=== PATIENT | female | born 1965 | race Caucasian/White ===

== ENCOUNTER 2018-09-07 10:44 | Day surgery (SDC) | payer OTHER, SELFPAY ==
[2018-09-07 10:58] VITALS: BMI 24.3
[2018-09-07 11:05] VITALS: BP 126/84; PULSE 70; RESP 16; TEMP 36.2; O2SAT 100
--- NOTE | 2018-09-07 12:09 | PM.HP.1 ---
History of Present Illness Date Patient Seen: 09/07/18 Time Patient Seen: 12:09 Chief complaint: [id number] Narrative: Patient is a woman here for screening colonoscopy. This is her 1st exam. No family history of colon cancer. Patient History Medical History Hearing deficit (Chronic) Vision disorder (Chronic) Herpes (Resolved ~1992) Surgical History Anesthesia (Resolved) Status post knee surgery Status post loop electrosurgical excision procedure (LEEP) of cervix (08/04/15) Family History Father Diabetes mellitus Hypertension High cholesterol Stroke Social History Smoking Status: Never smoker Family & Social History Family History Father Diabetes mellitus Hypertension High cholesterol Stroke Tobacco & Substance use: Smoking Status Never smoker Meds Home Medications Medication Instructions Recorded Confirmed Type biest 50/50 1 mg TOP .qd #1 07/28/18 09/07/18 Rx Progesterone E4M 75 mg PO .qhs #30 tab 08/12/18 09/07/18 Rx estriol See Rx Instructions .ROUTE .COMPLEX 09/07/18 09/07/18 History Allergies Allergy/AdvReac Type Severity Reaction Status Date / Time No Known Drug Allergies Allergy Verified 09/07/18 11:07 Review of Systems Review of Systems All systems reviewed & are unremarkable except as noted in HPI and below Gastrointestinal Comments: Take some kind of Medicine to flush liver Genitourinary Comments: Intermittent urinary tract infections Exam Vital Signs (past 8 hours): - 09/07/18 11:05 Temperature 97.2 F L Pulse Rate 70 Respiratory Rate 16 Blood Pressure 126/84 Pulse Oximetry 100 Oxygen Delivery Method Room Air Narrative Exam Narrative: Operative no apparent distress. Her lungs are clear to auscultation no rales or rhonchi heart regular rate and rhythm no murmur or gallop abdomen is scaphoid soft nontender without mass. Patient is alert and oriented x3. Assessment & Plan Assessment & Plan narrative: For screening colonoscopy. I have discussed the procedure and the rationale with the patient including risks of bleeding, perforation which would necessitate a major operation, failure to find remove all lesions and the potential to tattoo. They appeared to understand and wished to proceed.
--- NOTE | 2018-09-07 12:11 | PM.PREOP ---
Pre-operative Note Interval Note History & Physical reviewed/Exam performed by Physician: Yes Changes to H&P: No ASA Class (for procedural sedation): I
[2018-09-07] MEDS: fentaNYL 250 MCG/5 ML INJ IV (12:22)
[2018-09-07] MEDS: MIDAZOLAM 5 MG/5 ML VIAL IV (12:22)
--- NOTE | 2018-09-07 12:44 | PM.OP.ENDO ---
Operative Date/Time/Diagnoses Date of procedure: 09/07/18 Time of procedure: 12:45 Pre-op diagnosis: Screening examination due to age. This is her 1st colonoscopy. Post-op diagnosis: same (Normal exam) Procedure & Clinicians Study performed: Colonoscopy Same procedure as scheduled: Yes Indications: Screening due to age over 50 Surgeon: Erasto Greer Procedure Notes SCOAP/Timeout: Performed Procedure in detail: The patient was placed in the left lateral decubitus position and underwent IV sedation directed by the surgeon consisting of fentanyl and Versed. Digital exam was unremarkable. The scope was inserted and advanced through the rectum into the sigmoid, descending, transverse, and ascending colon. No lesions were seen. The cecum was reached identified by the ileocecal valve and the appendiceal opening. The ileocecal valve was successfully cannulated. The terminal ileum was normal in appearance. The scope was gradually brought out. No Polyps were found. The scope ultimately was retroflexed in the rectum. The appearance was normal except for minor scarring on what appeared to be old nonactive hemorrhoids. The scope was removed and the patient tolerated the procedure well Scope withdrawal time: Almost 8 min Sedation minutes: 27 Findings: other findings (Normal exam except minor scarring on inactive hemorrhoids) Specimen(s): none sent Complications: none Recommendations: Colonscopy in 10 years Follow up: as needed Disposition: PACU
--- NOTE | 2018-09-07 12:48 | P.OP.ENDO_ITS ---
Operative Date/Time/Diagnoses Date of procedure: 09/07/18 Time of procedure: 12:45 Pre-op diagnosis: Screening examination due to age. This is her 1st colonoscopy. Post-op diagnosis: same (Normal exam) Procedure & Clinicians Study performed: Colonoscopy Same procedure as scheduled: Yes Indications: Screening due to age over 50 Surgeon: Erasto Greer Procedure Notes SCOAP/Timeout: Performed Procedure in detail: The patient was placed in the left lateral decubitus position and underwent IV sedation directed by the surgeon consisting of fentanyl and Versed. Digital exam was unremarkable. The scope was inserted and advanced through the rectum into the sigmoid, descending, transverse, and ascending colon. No lesions were seen. The cecum was reached identified by the ileocecal valve and the appendiceal opening. The ileocecal valve was successfully cannulated. The terminal ileum was normal in appearance. The scope was gradually brought out. No Polyps were found. The scope ultimately was retroflexed in the rectum. The appearance was normal except for minor scarring on what appeared to be old nonactive hemorrhoids. The scope was removed and the patient tolerated the procedure well Scope withdrawal time: Almost 8 min Sedation minutes: 27 Findings: other findings (Normal exam except minor scarring on inactive hemo rrhoids) Specimen(s): none sent Complications: none Recommendations: Colonscopy in 10 years Follow up: as needed Disposition: PACU
[2018-09-07 12:54] VITALS: BP 108/73; PULSE 66; RESP 15; TEMP 36.6; O2SAT 100
[2018-09-07 13:34] VITALS: BP 104/74; PULSE 59; RESP 15; TEMP 36.4; O2SAT 100
== END 2018-09-07 13:50 | disposition home or self-care (01) ==
PROVIDERS: PCP Family Medicine; Visit Provider Specialist
PROC: 0DJD8ZZ Inspection of Lower Intestinal Tract, Via Natural or Artificial Opening Endoscopic (ICD-10-PCS; CPT 45378; principal; 2018-09-07 12:00)
DX: Z12.11 Encounter for screening for malignant neoplasm of colon (principal)
CPT/HCPCS: 45378; 99152; 99153; J2250; J3010

== ENCOUNTER → 2021-01-05 12:02 | Outpatient (CLI) | payer OTHER, SELFPAY ==
[2021-01-05 20:04] LABS: COVID19 - ORCAS (NP or Nasal) Negative (Negative)
== END ==
PROVIDERS: PCP Family Medicine; Visit Provider Family Medicine
DX: J06.9 Acute upper respiratory infection, unspecified (principal)
CPT/HCPCS: U0003

== ENCOUNTER → 2025-03-09 12:57 | Outpatient (CLI) | payer BC, SELFPAY | PROVIDERS: PCP Physician Assistant Medical; Visit Provider Physician Assistant Medical | DX: B35.3 Tinea pedis (principal) | CPT/HCPCS: 87070; 87075; 87205 ==

== ENCOUNTER → 2025-03-11 14:13 | Outpatient (CLI) | payer BC, SELFPAY ==
--- NOTE | 2025-03-11 14:14 | DI.RAD.S_ITS ---
PROCEDURE: XR DEXA AXIAL SKELETON INDICATIONS: screen COMPARISON: None. FINDINGS: Lumbar Spine: Bone mineral density 0.906 g/cm2, T score -1.3. Left Femoral Neck: Bone mineral density 0.629 g/cm2, T score -2.0. Left Hip: Bone mineral density 0.824 g/cm2, T score -1.0. Fracture Risk Calculation (when applicable): 10-year fracture risk of a major osteoporotic fracture 16 percent and of a hip fracture 2.0 percent. (T score greater or equal to -1.0 to: NORMAL) (T score from -1.1 to -2.4: OSTEOPENIA) (T score less than or equal to -2.5: OSTEOPOROSIS) IMPRESSION: Osteopenia--- recommend repeat DEXA in 2-3 years for reassessment. Follow-up guidelines as follows: Osteoporosis: Consider a repeat DEXA and Vertebral Fracture Assessment (VFA) exam in 2 years or sooner if medically necessary, to reassess this patient's status. Osteopenia: Consider a repeat DEXA in 2-3 years to reassess this patient's status, or if there is a new clinical indication. Normal: Consider a repeat DEXA in 5 years or sooner, or if there is a new clinical indication. All treatment decisions require clinical judgment and consideration of individual patient factors, including patient preferences, comorbidities, previous drug use, risk factors not captured in the FRAX model (e.g., frailty, falls, vitamin D deficiency, increased bone turnover, interval significant decline in bone density ) and possible under- or over-estimation of fracture risk by FRAX. In addition, the NOF Guide recommends that FDA-approved medical therapies be considered in postmenopausal women and men age >= 50 years with a: * Hip or vertebral (clinical or morphometric) fracture * T-score of <=-2.5 at the spine or hip * Ten-year fracture probability by FRAX of >= 3% for hip fracture or >=20% for major osteoporotic fracture. Dictated by: Kenyon Arrieta M.D. on 03/11/2025 at 19:24 Approved by: Kenyon Arrieta M.D. on 03/11/2025 at 19:25
--- NOTE | 2025-03-11 14:14 | DI.MG.S_ITS ---
MM screening mammo BI: 03/11/2025. BI-RADS: 1 CLINICAL: 59-year old female for bilateral screening mammogram. Tyrer-Cuzick lifetime risk of 7.7%. No personal or first-degree family history of breast cancer. PRIOR EXAMS: None. This is a baseline mammogram. MAMMOGRAPHY TECHNIQUE: 2D and 3D (tomosynthesis) digital mammographic views obtained, with additional images as needed for full coverage. Current study was also evaluated with a Computer Aided Detection (CAD) system. DENSITY B. There are scattered areas of fibroglandular density. MAMMOGRAPHY FINDINGS Bilateral: No suspicious mass, asymmetry, microcalcification, or other abnormality seen. IMPRESSION: * No evidence of malignancy. RECOMMENDATIONS Bilateral * Annual screening mammography. OVERALL ASSESSMENT CATEGORY BI-RADS-1: Negative. The [employer] recommends annual screening mammography beginning at age 40 for women with average risk of breast cancer. ELECTRONICALLY SIGNED: Beverley Yanez M.D. on 03/11/2025 at 09:32:05 PM PT Interpreting Station ID: [id number]
[2025-03-11 16:27] LABS: Add Manual Diff / Slide Review NO; Hematocrit 39.8 % (36-46); Hemoglobin 13.6 g/dL (12.0-16.0); Lymphocytes Absolute Auto 1700 /uL (1100-4500); Mean Corpuscular HGB Conc 34.1 % (30-36); Mean Corpuscular Hemoglobin 29.8 PG (26-34); Mean Corpuscular Volume 87.3 fL (80-100); Platelet Count 370 X10^3/uL (150-400)
[2025-03-11 16:36] LABS: Hemoglobin A1C% w Est Avg Glu 5.7 % (4.0-6.0)
[2025-03-11 16:49] LABS: Alanine Aminotransferase 28 IU/L (<35); Albumin 4.5 g/dL (3.5-5.0); Albumin Globulin Ratio 1.8 (1.0-2.8); Alkaline Phosphatase 86 U/L (38-126); Blood Urea Nitrogen 17 mg/dL (7-17); Calcium 9.6 mg/dL (8.4-10.2); Carbon Dioxide 27 mmol/L (22-32); Chloride 102 mmol/L (98-107); Cholesterol 237 mg/dL (140-199); Estimated Glomerular Filt Rate > 60 mL/min (>60); Globulin 2.5 g/dL (1.7-4.1); Glucose 80 mg/dL (70-99); HDL Cholesterol 64 mg/dL (40-60); HEMOLYSIS < 15 (0-50); Potassium 4.2 mmol/L (3.4-5.1); Sodium 135 mmol/L (137-145); Total Protein 7.0 g/dL (6.3-8.2); Triglycerides 95 mg/dL (35-150)
[2025-03-11 17:19] LABS: TSH w/ Reflex to FT4 1.15 uIU/mL (0.47-4.68)
== END ==
PROVIDERS: PCP Physician Assistant Medical; Referring Provider Physician Assistant Medical; Visit Provider Physician Assistant Medical
DX: Z12.31 Encounter for screening mammogram for malignant neoplasm of breast (principal); M85.89 Other specified disorders of bone density and structure, multiple sites; Z78.0 Asymptomatic menopausal state; Z13.29 Encounter for screening for other suspected endocrine disorder; Z12.11 Encounter for screening for malignant neoplasm of colon; Z13.1 Encounter for screening for diabetes mellitus; Z13.0 Encounter for screening for diseases of the blood and blood-forming organs and certain disorders involving the immune mechanism
CPT/HCPCS: 36415; 77063; 77067; 77080; 80053; 80061; 83036; 84443; 85025

== ENCOUNTER → 2025-03-29 11:32 | Outpatient (CLI) | payer BC, SELFPAY | PROVIDERS: PCP Physician Assistant Medical; Referring Provider Physician Assistant Medical; Visit Provider Physician Assistant Medical | DX: Z13.29 Encounter for screening for other suspected endocrine disorder (principal); Z12.11 Encounter for screening for malignant neoplasm of colon; Z12.31 Encounter for screening mammogram for malignant neoplasm of breast; Z13.0 Encounter for screening for diseases of the blood and blood-forming organs and certain disorders involving the immune mechanism; Z13.1 Encounter for screening for diabetes mellitus | CPT/HCPCS: 82274 ==

== ENCOUNTER → 2025-03-31 14:53 | Outpatient (CLI) | payer BC, SELFPAY ==
--- NOTE | 2025-03-31 14:54 | DI.US.S_ITS ---
PROCEDURE: US PELVIC COMPLETE INDICATIONS: Possible nodular left adnexal mass on exam TECHNIQUE: Real-time scanning was performed of the pelvic organs, with image documentation. Additional endovaginal scanning was necessary due to incomplete visualization of the adnexal and endometrial structures by transabdominal scanning. COMPARISON: None. FINDINGS: Uterus: Uterus is anteverted and normal in size at 4.8 x 1.8 x 2.9 cm. The myometrium is homogeneous. The endometrium measures 1 mm combined thickness. No focal lesion seen Ovaries: Not seen Other: No pathologic free abdominal or pelvic fluid. IMPRESSION: Nonvisualization of either ovary. No adnexal mass or focal lesion in the uterus. We strive to produce accurate, complete, and clear reports of imaging services. To assist us in improving patient care, this report was composed using standard report templates and voice recognition software. Therefore, it may contain abnormal punctuation, insertions and/or omissions. Occasional wrong-word or sound-alike substitutions may occur. Though we review the report and make efforts to correct it, we do recommend that the report be read carefully in proper context to recognize any text inaccuracies. Dictated by: Arthur Man M.D. on 04/03/2025 at 14:02 Approved by: Arthur Man M.D. on 04/03/2025 at 14:03
== END ==
LOC: US 14:54
PROVIDERS: PCP Physician Assistant Medical; Referring Provider Obstetrics & Gynecology; Visit Provider Obstetrics & Gynecology
DX: N94.89 Other specified conditions associated with female genital organs and menstrual cycle (principal)
CPT/HCPCS: 76830; 76856